=== PATIENT | male | born 1945 | race Caucasian/White ===

== ENCOUNTER → 2016-11-10 | Outpatient (CLI) | payer MEDICARE, OTHER ==
--- NOTE | 2016-11-10 13:50 | RADRPT ---
PROCEDURE: XR Pelvis 1 View and Hip 2 Views. CLINICAL INDICATION: Right hip pain. TECHNIQUE: AP pelvis and AP and frog lateral views of the right hip were performed. COMPARISON: None. FINDINGS: Osteopenia is identified. The osseous structures appear intact. No destructive bony lesions are ob served. Moderate narrowing of the right hip joint is identified. Degenerative changes are seen in the lower lumbar spine. A few phleboliths are noted in the left pelvis. IMPRESSION: Osteopenia. Moderate osteoarthritis of the right hip. Degenerative changes in the lower lumbar spine. If further characterization is needed CT or MRI could be helpful. If there is high clinical suspicion for traumatic injury, further evaluation with CT should be consi dered. RPTAT: AA .Osito Yang MD, MD Date Time Electronically viewed and signed by .Osito Yang MD, on 11/10/2016 13:49 .P/
== END | disposition home or self-care (01) ==
LOC: HKI 11:51
PROVIDERS: ATTEND Orthopaedic Surgery
DX: M16.11 Unilateral primary osteoarthritis, right hip (principal); Z88.2 Allergy status to sulfonamides
CPT/HCPCS: 73502; G0463